=== PATIENT | female | born 2000 | race Caucasian/White ===

== ENCOUNTER 2024-11-19 04:47 | Inpatient (IN) | payer BC ==
[2024-11-19] MEDS ORDERED: miSOPROStoL 200 MCG TAB PO PRN (07:18)
[2024-11-19] MEDS ORDERED: TRANEXAMIC 1,000 MG/100ML-NACL 1,000 MG in EMPTY BAG 1 BAG IV PRN (07:18)
[2024-11-19] MEDS ORDERED: CARBOPROST TROMETHAMINE 250 MCG/ML 1 ML AMP IM PRN (07:18)
[2024-11-19] MEDS ORDERED: OXYTOCIN 10 UNIT/ML 1 ML VIAL IM PRN (07:18)
[2024-11-19] MEDS ORDERED: TERBUTALINE 1 MG/ML VIAL SQ PRN (07:18)
[2024-11-19] MEDS ORDERED: miSOPROStoL 200 MCG TAB RECTAL PRN (07:18)
[2024-11-19] MEDS: LACTATED RINGERS 1,000 ML IV SCH (08:11)
[2024-11-19 08:21] LABS: Basophils % (A) 0 %; Eosinophils # (A) 0.1 k/uL (0-0.7); Eosinophils % (A) 1 %; HCT 37.7 % (34.0-46.0); HGB 12.7 gm/dL (11.4-16.0); Lymphocytes % (A) 14 %; MCH 30.6 pg (25.0-35.0); MCHC 33.6 g/dL (31.0-37.0); MCV 90.9 fL (80.0-100.0); Mean Platelet Volume 9.9; Monocytes # (A) 0.6 k/uL (0-1.0); Monocytes % (A) 4 %; Neutrophils # (A) 11.4 k/uL (1.3-7.7); Neutrophils % (A) 80 %; Platelet Count 192 k/uL (150-450); RBC 4.15 m/uL (3.80-5.40); WBC 14.3 k/uL (3.8-10.6)
--- NOTE | 2024-11-19 09:05 | P.HPOB ---
History of Present Illness H&P Date: 11/19/24 Chief Complaint: contractions Ms. Suh is a 24 year old at 39 weeks and 4 days gestation with EDC of 11/23/24 who presents in labor. Her has been complicated by maternal depression and anxiety, or which the patient takes Celexa 10mg. The patient is Rh negative and did received rhogam at 28 weeks. The fetus is estimated in the 40%ile based on a 38 week growth US. work-up: blood type O negative, antibody screen negative, rubella immune, VDRL non-reactive, HBsAg negative, HIV negative, HCV non-reactive, gonorrhea negative, chlamyida negative, 1 hour GTT wnl, GBS negative. s/p TDap. Past Medical History Past Medical History: No Reported History History of Any Multi-Drug Resistant Organisms: None Reported Past Surgical History: No Surgical Hx Reported Past Anesthesia/Blood Transfusion Reactions: No Reported Reaction Past Psychological History: Anxiety Additional Psychological History / Comment(s): pt on celexa Smoking Status: Never smoker Past Alcohol Use History: None Reported Past Drug Use History: None Reported - Past Family History Mother Family Medical History: No Reported History Medications and Allergies Home Medications Medication Instructions Recorded Confirmed Type Citalopram Hydrobromide [CeleXA] 10 mg PO DAILY 09/27/24 11/19/24 History L.acidoph,Paracasei, B.lactis 1 each PO DAILY 09/27/24 11/19/24 History [Probiotic] Montelukast [Singulair] 10 mg PO DAILY 09/27/24 11/19/24 History [place]-3/Dha/Epa/Fish Oil [Fish Oil 1 each PO DAILY 09/27/24 11/19/24 History 1,000 mg Softgel] Pnv 11/Iron Fum/Folic Acid/Om3 1 each PO DAILY 09/27/24 11/19/24 History [[place] Dha Softgel] Allergies Allergy/AdvReac Type Severity Reaction Status Date / Time cat dander Allergy Cough Verified 11/19/24 08:20 dog dander Allergy Cough Verified 11/19/24 08:20 Exam Vital Signs Temp Pulse Resp BP Pulse Ox 11/19/24 08:08 97.2 F L 68 17 113/69 11/19/24 04:49 97.8 F 75 16 127/72 99 Intake and Output 11/18/24 11/19/24 11/19/24 22:59 06:59 14:59 Other: Weight 66.224 kg 66.224 kg Focused physical exam is performed. This is a healthy-appearing in no apparent distress. Breathing is non-labored. Abdomen is gravid and non-tender. Cervical exam is 4/90/-1. AROM is undertaken with clear fluid noted. Extremities non-tender and non-edematous. heart tones are Category I and tocometer is graphing contractions every 2-4 minutes. Results Result Diagrams: 11/19/24 08:05 Abnormal Lab Results - Last 24 Hours (Table) 11/19/24 Range/Units 08:05 WBC 14.3 H (3.8-10.6) k/uL Neutrophils # 11.4 H (1.3-7.7) k/uL Assessment and Plan Assessment: 24 year old at 39 weeks and 4 days gestation in labor Plan: Admit, clear liquid diet, epidural prn, expectant management, continuous EFM and tocometer
[2024-11-19] MEDS ORDERED: NALBUPHINE 10 MG/ML (10 ML MDV) IV PRN (10:13)
[2024-11-19] MEDS ORDERED: SODIUM CHLORIDE 0.9% 250 ML BAG ONE (11:15)
[2024-11-19] MEDS ORDERED: ROPIVACAINE 5 MG/ML 30 ML VIAL ONE (11:15)
[2024-11-19] MEDS ORDERED: fentaNYL (PF) 50 MCG/ML 5 ML AMP ONE (11:15)
[2024-11-19] MEDS: OXYTOCIN 30 UNITS/500 ML NS 30 UNIT in SALINE 1 500ML.BAG IV SCH (14:29)
[2024-11-19] MEDS: LIDOCAINE 0.5% (PF) 5 MG/ML (50 ML SDV) SQ PRN (14:53)
[2024-11-19] MEDS: METHYLERGONOVINE 0.2 MG/ML 1 ML AMP IM PRN (14:53)
[2024-11-19] MEDS ORDERED: ZOLPIDEM 5 MG TAB PO PRN (14:59)
[2024-11-19] MEDS ORDERED: SIMETHICONE 80 MG CHEWABLE PO PRN (14:59)
[2024-11-19] MEDS ORDERED: diphenhydrAMINE 25 MG CAP PO PRN (14:59)
[2024-11-19] MEDS ORDERED: diphenhydrAMINE 50 MG CAP PO PRN (14:59)
[2024-11-19] MEDS ORDERED: LANOLIN CREAM 1 GM TUBE TOPICAL PRN (14:59)
[2024-11-19] MEDS ORDERED: HYDROCORTISONE 2.5% RECTAL CREAM 30 GM TUBE RECTAL PRN (14:59)
[2024-11-19] MEDS ORDERED: diphenhydrAMINE 50 MG/ML 1 ML VIAL IVP PRN ×2 (14:59)
--- NOTE | 2024-11-19 14:59 | P.PROBDLV ---
Vaginal Delivery Note - . Vaginal Delivery Note: DATE OF SERVICE: 11/19/2024 PROCEDURE: Normal Vaginal Delivery ATTENDING: Dr. Ngozi Medina MD ESTIMATED BLOOD LOSS: 500 mL FINDINGS: VFI, Apgars 8/9. Weight 6 pounds and 12 ounces (3070 grams) PROCEDURE: Ms. Suh is a 24 year old at 39 weeks and 3 days gestation presenting to labor and delivery in labor. For further details on the , please review the admitting H&P. AROM was undertaken at 854 revealing clear amniotic fluid. The patient received epidural anesthesia per her request. The patient was completely dilated at 1338. She pushed effectively with Category I to II heart tones. A viable female infant was delivered at 1424. The i nfant was placed on the maternal abdomen and bulb suctioned. The was noted to be spontaneously crying. Cord was clamped and cut after a 30-second delay. The infant was handed off to the pediatric team. Placenta was delivered whole with gentle cord traction at 1429. Oxytocin was started to facilitate uterine tone. Bleeding was brisk, so the Pitocin was run at the bolus rate and a dose of Methergine was given. Uterine fundus was found to be firm and below the umbilicus upon fundal massage. Thorough examination of the cervix, vagina, periurethral area, and perineum revealed a second degree laceration. The perineum was infiltrated with lidocaine and the laceration was repaired with 2-0 Vicryl in the standard fashion. The patient is stable and allowed to begin the bonding process.
[2024-11-19] MEDS: IBUPROFEN 800 MG TAB PO SCH (15:28)
[2024-11-19] MEDS: BENZOCAINE/MENTHOL SPRAY 1 GM/SPRAY AEROSOL TOPICAL PRN (15:32)
[2024-11-19] MEDS: Rhogam IMMUNE GLOBULIN 1,500 UNIT/1 ML IM ONE (18:47)
[2024-11-19] MEDS: SENNOSIDES-DOCUSATE SODIUM 1 EACH TAB PO SCH (19:49)
[2024-11-19 20:07] VITALS: RESP 16
[2024-11-20] MEDS: ACETAMINOPHEN TAB 500 MG TAB PO SCH (02:59)
[2024-11-20 06:09] LABS: Basophils % (A) 0 %; Eosinophils # (A) 0.2 k/uL (0-0.7); Eosinophils % (A) 2 %; HCT 30.6 % (34.0-46.0); HGB 10.4 gm/dL (11.4-16.0); Lymphocytes # (A) 2.2 k/uL (1.0-4.8); Lymphocytes % (A) 20 %; MCH 30.8 pg (25.0-35.0); MCHC 33.9 g/dL (31.0-37.0); MCV 90.7 fL (80.0-100.0); Mean Platelet Volume 9.8; Monocytes # (A) 0.5 k/uL (0-1.0); Monocytes % (A) 5 %; Neutrophils # (A) 7.7 k/uL (1.3-7.7); Neutrophils % (A) 72 %; Platelet Count 161 k/uL (150-450); RBC 3.37 m/uL (3.80-5.40); RDW 13.3 % (11.5-15.5); WBC 10.8 k/uL (3.8-10.6)
[2024-11-20 09:21] VITALS: BP 113/74; PULSE 86; TEMP 97.9
--- NOTE | 2024-11-20 11:18 | P.DS ---
Providers Date of admission: 11/19/24 07:20 Expected date of discharge: 11/20/24 Attending physician: Ngozi Medina MD Primary care physician: Stated None Hospital Course: Ms. Suh is a 24 year old now PPD#1 s/p . The patient is doing well this morning and had no acute events overnight. She has no complaints this morning. She reports minimal lochia, passing flatus, voiding without difficulty, ambulating, and eating/drinking without nausea or vomiting. doing well at bedside. She denies chest pain, shortness of breathing, fevers, or chills overnight. She denies pain or swelling in the legs. restrictions are reviewed with the patient including pelvic rest for 6 weeks. The patient is encouraged to call the office if she experiences any heavy bleeding, foul- smelling discharge, breast complaints, or any if she has any other concerns. She will follow up in the office in 6 weeks for exam. All questions are answered. Patient Condition at Discharge: Good Plan - Discharge Summary New Discharge Prescriptions: No Action Pnv 11/Iron Fum/Folic Acid/Om3 [Wesnate Dha Softgel] 1 each PO DAILY [place]-3/Dha/Epa/Fish Oil [Fish Oil 1,000 mg Softgel] 1 each PO DAILY Montelukast [Singulair] 10 mg PO DAILY Citalopram Hydrobromide [CeleXA] 10 mg PO DAILY L.acidoph,Paracasei, B.lactis [Probiotic] 1 each PO DAILY Discharge Medication List Citalopram Hydrobromide [CeleXA] 10 mg PO DAILY 09/27/24 [History] L.acidoph,Paracasei, B.lactis [Probiotic] 1 each PO DAILY 09/27/24 [History] Montelukast [Singulair] 10 mg PO DAILY 09/27/24 [History] [place]-3/Dha/Epa/Fish Oil [Fish Oil 1,000 mg Softgel] 1 each PO DAILY 09/27/24 [History] Pnv 11/Iron Fum/Folic Acid/Om3 [Wesnate Dha Softgel] 1 each PO DAILY 09/27/24 [History] Follow up Appointment(s)/Referral(s): Ngozi Medina MD [STAFF PHYSICIAN] - 6 Weeks Activity/Diet/Wound Care/Special Instructions: Instructions 1. Do not begin any exercise program for 3 weeks. 2. Do not resume sexual relations for 6 weeks or longer if uncomfortable. 3. You may take tub baths or showers at any time. 4. You may use tampons if desired after 6 weeks. 5. Keep any areas repaired with stitches clean and dry. 6. If you are not nursing, wear a good fitting, supportive bra during the day and limit fluid intake for at least 1 week to prevent breast engorgement. 7. Call the office, , within the next week to make appointment for your 6 week checkup if it has not already been made. 8. Report any of the following occurrences to the doctor promptly: a. Heavy, excessive bleeding b. Chills, fever c. Burning or frequency of urination d. Pain or redness and breasts if nursing e. Increasing pain or swelling of vulva (stitches). In addition to the above instructions, the following additional should be followed: 1. No heavy lifting or straining (exercising) until after 6 week checkup. 2. Keep abdominal incision clean and dry: You may wear a dressing if more comfortable. 3. Make office appointment for 2 weeks after delivery date. Discharge Disposition: HOME SELF-CARE
--- NOTE | 2024-11-20 13:03 | P.MSEPDOC ---
Presenting Problems - Arrival Data Date of Arrival on Unit: 11/19/24 Time of Arrival on Unit: 07:10 Mode of Transport: Ambulatory - Complaint OB-Reason for Admission/Chief Complaint: Possible Onset of Labor Medical History - Information : 1 Para: 0 Term: 0 : 0 Abortions: Spontaneous or Elective: 0 Number of Living Children: 0 - Gestational Age Gestational Age by NETO (wks/days): 39 Weeks and 3 Days Review of Systems - Review of Systems Constitutional: No problems Breast: No problems ENT: No problems Cardiovascular: No problems Respiratory: No problems Gastrointestinal: No problems Genitourinary: No problems Musculoskeletal: No problems Neurological: No problems Skin: No problems Vital Signs - Temperature Temperature: 97.9 F Temperature Source: Oral - Pulse Pulse Oximetery Pulse Rate: 86 Pulse Assessment Method: Automatic Cuff - Respirations Respiratory Rate: 16 Oxygen Delivery Method: Room Air - Blood Pressure Right Arm Blood Pressure: 113/74 Blood Pressure Mean: 87 Blood Pressure Source: Automatic Cuff Medical Screen Scoring - Cervical Exam Dilation (cm): 3.5 Effacement (%): 70 Station: -2 Membranes: Intact - Uterine Contractions Frequency From (mins): 3 Frequency To (mins): 5 Duration From (seconds): 60 Duration To (seconds): 90 Intensity: Mild Resting: Soft to palpation - Assessment - Baby A Baseline FHR: 125 Heart Rate - NICHD Category: Category I (Normal) NST: Reactive Physician Notification - Physician Notified Physician Notified Date: 11/19/24 Physician Notified Time: 07:06 Physician: Ngozi Medina New Order Received: Yes - Notification Comment Comment: Dr. Medina called, notified of pt complaints, GA, G/P, CAT FHT, reactive NST, cervical exam, contraction pattern, VSS. Orders to admit pt. Maternal Triage Index - Non-Urgent/Priority 4 Non-Urgent Priority 4: Yes Criteria Met for Priority 4: pt. presents to triage due to contractions that started at 0200, pt. states about 4min apart rating them 6/10 Disposition - Disposition OB Disposition: Admit, LDRP Suite I agree with the RN Medical Screening Exam: Yes Case reviewed; plan agreed upon as documented in EMR&OBIX.: Yes Diagnosis: ENCOUNTER FOR FULL-TERM UNCOMPLICATED DELIVERY
== END 2024-11-20 17:05 | disposition home or self-care (01) | DRG 807 ==
LOC: FBPOP 04:47 → 4FBP 07:20
PROVIDERS: ADMIT Obstetrics & Gynecology; ATTEND Obstetrics & Gynecology
PROC: 10907ZC Drainage of Amniotic Fluid, Therapeutic from Products of Conception, Via Natural or Artificial Opening (ICD-10-PCS; principal; 2024-11-19)
PROC: 10E0XZZ Delivery of Products of Conception, External Approach (ICD-10-PCS; principal; 2024-11-19)
PROC: 0KQM0ZZ Repair Perineum Muscle, Open Approach (ICD-10-PCS; principal; 2024-11-19)
PROC: 3E0234Z Introduction of Serum, Toxoid and Vaccine into Muscle, Percutaneous Approach (ICD-10-PCS; principal; 2024-11-19)
DX: O26.893 Other specified pregnancy related conditions, third trimester (principal); Z37.0 Single live birth; O99.344 Other mental disorders complicating childbirth; F32.A Depression, unspecified; O70.1 Second degree perineal laceration during delivery; Z67.41 Type O blood, Rh negative; F41.9 Anxiety disorder, unspecified; Z79.899 Other long term (current) drug therapy; Z3A.39 39 weeks gestation of pregnancy
CPT/HCPCS: 59025; 85025; 85461; 86850; 86870; 86880; 86900; 86901; 99213